=== PATIENT | female | born 1975 | race Caucasian/White ===

== ENCOUNTER 2016-07-06 09:58 | Emergency (ER) | payer BC ==
[~2016-07-06] VITALS: Ht 170.2 cm; Wt 99.1 kg
[~2016-07-06 09:58] MED LIST: ANUSOL-HC SUPPO25 MG RC; CLINDAMYCIN150 MG PO; DOXYCYCLINE 10100 MG PO; NO HOME MEDICATIONS; NORCO 325 MG-51 TAB PO; NORCO 325 MG-7.1 TAB PO; PREDNISONE20 MG PO; PROAIR HFA0.09 MG/AC IH; PROTONIX 40MG T40 MG PO; SILVADENE CREAM1 TU TP; ZITHROMAX Z PA250 MG PO; ZOFRAN 4MG T4 MG/TAB PO
[2016-07-06 10:01] VITALS: BP 124/76; TEMP 97.7
[2016-07-06 11:45] VITALS: PULSE 74
== END 2016-07-06 11:50 | disposition home or self-care (01) ==
LOC: COL.ER 09:58
DX: S86.212A Strain of muscle(s) and tendon(s) of anterior muscle group at lower leg level, left leg, initial encounter (principal); X50.1XXA Overexertion from prolonged static or awkward postures, initial encounter

== ENCOUNTER 2016-07-18 20:11 | Emergency (ER) | payer BC ==
[~2016-07-18] VITALS: Ht 170.2 cm; Wt 99.5 kg
[2016-07-18 20:20] VITALS: TEMP 97.9
[2016-07-19 01:21] VITALS: BP 124/80; PULSE 80
== END 2016-07-19 01:54 | disposition home or self-care (01) ==
LOC: COL.ER 20:11
DX: K56.41 Fecal impaction (principal)

== ENCOUNTER 2016-08-14 16:34 | Emergency (ER) | payer BC ==
[~2016-08-14] VITALS: Ht 170.2 cm; Wt 100.0 kg
[2016-08-14 16:37] VITALS: PULSE 75; TEMP 98.5
[2016-08-14] MEDS ORDERED: PREDNISONE20 MG PO (17:22)
[2016-08-14] MEDS ORDERED: BACTRIM DS 8001 TAB PO (17:22)
[2016-08-14 17:29] VITALS: BP 123/81
== END 2016-08-14 17:36 | disposition home or self-care (01) ==
LOC: COL.ER 16:34
DX: R21 Rash and other nonspecific skin eruption (principal); F32.9 Major depressive disorder, single episode, unspecified; L29.9 Pruritus, unspecified

== ENCOUNTER 2017-06-13 18:52 | Emergency (ER) | payer BC ==
[~2017-06-13] VITALS: Ht 170.2 cm; Wt 108.8 kg
[~2017-06-13 18:52] MED LIST changes: +BACTRIM DS 8001 TAB PO
[2017-06-13 18:56] VITALS: BP 128/73; TEMP 97.6
[2017-06-13 19:45] LABS: COLLECTION METHOD CLEAN CATCH
[2017-06-13 19:54] LABS: MUCOUS Present /lpf; PH 6 (5-8); SQUAMOUS EPITHELIAL 0-2 /hpf; URINE APPEARANCE Hazy; URINE BACTERIA None Seen /hpf; URINE BILIRUBIN Negative (NEGATIVE); URINE BLOOD 1+ (NEGATIVE); URINE COLOR Amber; URINE GLUCOSE Negative (NEGATIVE); URINE KETONE Trace (NEGATIVE); URINE LEUKOCYTE ESTERASE Negative (NEGATIVE); URINE NITRATE Negative (NEGATIVE); URINE PROTEIN(semi-quant) Negative (NEGATIVE); URINE RBC 0-2 /hpf
[2017-06-13 20:55] VITALS: PULSE 85
== END 2017-06-13 20:54 | disposition home or self-care (01) ==
LOC: COL.ER 18:52
PROVIDERS: Emergency Medicine
DX: N72 Inflammatory disease of cervix uteri (principal); N89.8 Other specified noninflammatory disorders of vagina; F17.210 Nicotine dependence, cigarettes, uncomplicated
CPT/HCPCS: J0696

== ENCOUNTER 2018-02-01 12:07 | Emergency (ER) | payer BC ==
[~2018-02-01] VITALS: Ht 170.2 cm; Wt 103.6 kg
[2018-02-01 12:25] VITALS: TEMP 97.8
[2018-02-01 13:20] LABS: BASO % 0.5 % (0.0-2.0); EOS % 0.5 % (0-4.0); GRAN # 5.2 (1.4-6.5); GRAN % 70.8 % (42.2-75.2); HEMATOCRIT 41.1 % (37.0-47.0); HEMOGLOBIN 14.4 g/dl (12.5-16.0); LYMPH # 1.4 (1.2-3.4); LYMPH % 19.3 % (20.0-51.0); MEAN CELL VOLUME 106 fl (80.0-100.0); MEAN CORPUSCULAR HEMOGLOBIN 37 pg (27.0-31.0); MEAN CORPUSCULAR HGB CONC 35 g/dl (33.0-37.0); MEAN PLATELET VOLUME 8.8 fl (7.4-10.4); MONO # 0.6 (0.1-0.6); MONO % 8.5 % (1.7-9.3); PLATELET COUNT 223 K/mm3 (130-400); RED BLOOD COUNT 3.88 M/mm3 (4.10-5.30); REDCELL DISTRIBUTION WIDTH-CV 12.3 % (11.5-14.5)
[2018-02-01 13:28] LABS: ALBUMIN 4.2 gm/dL (3.5-5.0); BILIRUBIN,TOTAL 0.4 mg/dL (0.0-1.0); CALCIUM 9.4 mg/dL (8.4-10.2); CREATININE, serum 0.69 mg/dL (0.52-1.25); POTASSIUM 4.2 mmol/L (3.4-5.0); TOTAL PROTEIN 7.2 gm/dL (6.4-8.2)
[2018-02-01] MEDS ORDERED: CARAFATE 1GM1 G PO (14:21)
[2018-02-01 14:32] VITALS: BP 131/70; PULSE 80
== END 2018-02-01 14:32 | disposition home or self-care (01) ==
LOC: COL.ER 12:07
PROVIDERS: Emergency Medicine
DX: R74.0 Nonspecific elevation of levels of transaminase and lactic acid dehydrogenase [LDH] (principal); R10.9 Unspecified abdominal pain; R11.2 Nausea with vomiting, unspecified; F17.210 Nicotine dependence, cigarettes, uncomplicated; Z90.49 Acquired absence of other specified parts of digestive tract
CPT/HCPCS: C9113; J2405; J7030; Q9967

== ENCOUNTER 2021-01-06 14:11 | Observation (INO) | payer BC ==
[~2021-01-06] VITALS: Ht 170.2 cm; Wt 115.5 kg
[~2021-01-06 14:11] MED LIST changes: +CARAFATE 1GM1 G PO
[2021-01-06 14:30] LABS: BASO # 0.1 K/mm3 (0.0-0.2); BASO % 0.5 % (0.0-2.0); EOS # 0.1 K/mm3 (0.0-0.7); GRAN # 8.8 K/mm3 (1.4-6.5); GRAN % 79.3 % (42.2-75.2); HEMATOCRIT 40.3 % (37.0-47.0); HEMOGLOBIN 14.1 g/dl (12.5-16.0); LYMPH # 1.4 K/mm3 (1.2-3.4); LYMPH % 12.6 % (20.0-51.0); MEAN CELL VOLUME 98 fl (80.0-100.0); MEAN CORPUSCULAR HEMOGLOBIN 34 pg (27.0-31.0); MEAN CORPUSCULAR HGB CONC 35 g/dl (33.0-37.0); MEAN PLATELET VOLUME 8.8 fl (7.4-10.4); MONO # 0.7 K/mm3 (0.1-0.6); MONO % 6.1 % (1.7-9.3); PLATELET COUNT 278 K/mm3 (130-400); REDCELL DISTRIBUTION WIDTH-CV 12.2 % (11.5-14.5)
[2021-01-06 14:46] LABS: ALBUMIN 3.8 gm/dL (3.5-5.0); BILIRUBIN,TOTAL 0.5 mg/dL (0.2-1.2); C-REACTIVE PROTEIN 0.3 mg/dL (0.00-0.50); CALCIUM 9.5 mg/dL (8.4-10.2); CREATININE, serum 0.8 mg/dL (0.57-1.11); POTASSIUM 3.8 mmol/L (3.5-4.5); TOTAL PROTEIN 7.3 gm/dL (6.2-8.1)
[2021-01-06 18:32] VITALS: BP 121/75; PULSE 86; TEMP 98.2
--- NOTE | 2021-01-06 19:45 | NUR ---
PT ASKING TO ORDER FOOD. IS ON CLEAR LIQUIDS ONLY AT THIS TIME UNTIL MIDNIGHT, THEN NPO. IN NO OBVIOUS DISTRESS.
--- NOTE | 2021-01-06 20:12 | NUR ---
PT COMPLAINS OF SEVERE RLQ PAIN. MEDICATED WITH MORPHINE 2MG IVP AT THIS TIME. PT GROANING AND ASKS FOR TORADOL, SHE BELIEVES THIS HELPED IN THE ED. ADMISSION QUESTIONS COMPLETED. IVF CONNECTED AND INFUSING WITHOUT PROBLEM TO LEFT FOREARM. DOES HAVE BRUISE DISTAL TO INSERTION SITE.
--- NOTE | 2021-01-06 20:48 | NUR ---
PHONED DR WALSH FOR PAIN MEDS AND NICOTENE PATCH, NEW ORDERS RECEIVED.
[2021-01-06 21:15] VITALS: BP 150/79; PULSE 86; TEMP 97.6
--- NOTE | 2021-01-06 21:27 | NUR ---
MEDICATED WITH TORADOL 15MG IVP AND ZOFRAN 4MG IVP AT THIS TIME.
--- NOTE | 2021-01-06 22:33 | NUR ---
PT MOANING IN PAIN, MEDICATED WITH MORPHINE 4MG IVP AT THIS TIME.
[2021-01-07] VITALS (9 sets, daily range): BP systolic 109–135; BP diastolic 51–74; PULSE 90–101; TEMP 98.4–99.4
--- NOTE | 2021-01-07 00:52 | NUR ---
PT ASKING FOR PAIN AND NAUSEA MEDS. MORPHINE 4MG IVP AND PHENERGAN 12.5MG/50CC NS GIVEN AT THIS TIME.
--- NOTE | 2021-01-07 03:15 | NUR ---
PT REPORTS CONTINUED PAIN TO ABD. MEDICATED WITH MORPHINE 4MG IVP AT THIS TIME.
--- NOTE | 2021-01-07 05:35 | NUR ---
MEDICATED WITH MORPHINE 4MG IVP FOR RLQ ABD PAIN. HAS BEEN NPO FOR SURGERY TODAY.
--- NOTE | 2021-01-07 07:02 | NUR ---
Pt in bed upon entering room. Dr Mendiola in visiting with pt and discussing possible upcoming surgery. Assisted pt to the restroom, she stated she did not think she could move the pain was so bad. After some encouragement, she did get up and had no issues getting in to the restroom and then back to bed.
--- NOTE | 2021-01-07 09:01 | NUR ---
Pt off the floor for surgery
[2021-01-07] MEDS ORDERED: NORCO 325 MG-51 TAB PO (09:56)
--- NOTE | 2021-01-07 11:37 | NUR ---
Pt reports feeling much better. She states that she is a little sore, but no real pain like she was having. Explained room service ot her as she is tolerating clear liquids with no complaints of nausea.
--- NOTE | 2021-01-07 12:50 | NUR ---
Pt continues to do well. She has tolerated a general diet. Pt does not feel as if she needs to void at this time. Informed her to notify nursing when she does so that we can assist her. No other needs, pt does report feeling much better
--- NOTE | 2021-01-07 13:53 | NUR ---
Marco met with the pt who stated her preference to return home once medically stable. The pt lives with her spouse, alexander [phone]. The pt is independent on all ADLS and does not use any DME. The get her medications from [facility]. The pt is not interested in [facility] at this time. No other needs stated at time. Sw to await further recommendations and follow up as needed. D/c: Home.
--- NOTE | 2021-01-07 15:01 | NUR ---
Pt has been up to the restroom and did very well with minimal pain complaints. Pt is ready for discharge and ride is here
--- NOTE | 2021-01-07 15:45 | NUR ---
Reviewed discharge instructions to include prescription and follow up appointment. INT x2 removed from right forearm and left forearm. Pt escorted out via wheelchair
== END 2021-01-07 15:50 | disposition home or self-care (01) ==
LOC: COL.ER 14:11 → SURG 16:37
PROVIDERS: Nurse Practitioner; ADMIT Surgery
DX: K35.80 Unspecified acute appendicitis (principal); G89.29 Other chronic pain; M54.9 Dorsalgia, unspecified; I25.10 Atherosclerotic heart disease of native coronary artery without angina pectoris; F17.210 Nicotine dependence, cigarettes, uncomplicated; Z98.51 Tubal ligation status; Z20.822 Contact with and (suspected) exposure to COVID-19; Z79.899 Other long term (current) drug therapy
CPT/HCPCS: G0378; J1170; J1885; J1956; J2270; J2405; J2550; J2704; J3010; J7030; J7120; Q9967